=== PATIENT | female | born 1970 | race Two or more races ===

== ENCOUNTER 2016-08-07 13:03 | Emergency (ER) | payer OTHER ==
[~2016-08-07 13:03] MED LIST: DICLOFENAC SODI50 M1 PO; FIORICET 50-301 EAC1 PO; HYDROCHLOROTHIA25 M1 PO; KLONOPIN1 M1 PO; MIRALAX119 G1 PO; NEURONTIN300 M1 PO; PRINIVIL20 M1 PO; TOPAMAX50 M3 PO; ULTRAM50 M1 PO; VENTOLIN HFA18 G2 PO; ZANAFLEX4 M2 PO
[2016-08-07] MEDS ORDERED: AMITIZA24 MC1 PO (14:05)
== END 2016-08-07 16:36 ==
LOC: EDMED 13:03
DX: R51 Headache (principal); I10 Essential (primary) hypertension; Z79.899 Other long term (current) drug therapy
CPT/HCPCS: J0780; J1200; J1885; J2060; J7030